=== PATIENT | male | born 1985 | race African-American/Black ===

== ENCOUNTER 2016-11-11 13:07 | Emergency (ER) | payer OTHER, MEDICAID ==
[~2016-11-11] VITALS: Ht 175.3 cm; Wt 70.0 kg
[2016-11-11 13:09] VITALS: BP 117/73; PULSE 76; RESP 20; TEMP 98.5; O2SAT 99
--- NOTE | 2016-11-11 13:13 | PD ---
Physical Exam Time Seen by Provider: 13:11 Narrative 31yo M c/o facial pain that started as left sided tooth pain yesterday. His whole face hurts today. Denies fever, vomiting. Patient seen in triage. VS reviewed. Awaiting bed placement. Data Data Last Documented VS Vital Signs Date Time Temp Pulse Resp B/P (MAP) Pulse Ox O2 Delivery O2 Flow Rate FiO2 11/11/16 13:09 98.5 76 20 117/73 (88) 99 Room Air MDM Supervised Visit with LEATHA: Rachel Esquivel Nov 11, 2016 13:13
--- NOTE | 2016-11-11 14:48 | PD ---
HPI Chief Complaint: ENT Complaint Time Seen by Provider: 14:33 Travel History International Travel<30 days: No Contact w/Intl Traveler<30days: No Traveled to known affect area: No History of Present Illness HPI 31-year-old Afro-Nepalese male with history of glaucoma and legal blindness with cataracts on the right, [facility] Patient states he developed a headache yesterday and the frontal sinus region which is continued since that time. He denies fever, chills, ear pain, postnasal drip, sore throat, or other symptoms. He denies specific eye pain at this time. He states that the school is not able to get ibuprofen or Tylenol without a prescription. He is currently followed by an lining stitcher for his glaucoma taking multiple meds as noted. He has no known drug allergies. [facility] Social History Alcohol Use: No Tobacco Use: No Allergies-Medications (Allergen,Severity, Reaction): Coded Allergies: No Known Allergies (Unverified , 11/11/16) Review of Systems Except as stated in HPI: all other systems reviewed are Neg General / Constitutional: No: Fever, Chills Eyes: Positive: Blindness (see history present illness), No: Visual changes HENT: Positive: Headaches, No: Vertigo, Lightheadedness, Sore Throat, Rhinitis , Rhinorrhea, Congestion, Nosebleed, Neck Stiffness, Neck Pain, Gingival Bleeding, Dental Difficulties, Ear Discharge, Earache Cardiovascular: No: Chest Pain or Discomfort Respiratory: No: Cough, Shortness of Breath Gastrointestinal: No: Abdominal Pain Genitourinary: No: Dysuria Musculoskeletal: No: Pain Skin: No Rash Neurologic: No: Weakness Psychiatric: No: Depression Endocrine: No: Polydipsia Hematologic/Lymphatic: No: Easy Bruising Physical Exam Narrative GENERAL: Patient appears in no acute distress. SKIN: Warm and dry. Normal color. Normal turgor. HEAD: Atraumatic. Normocephalic. EYES: Patient has obvious cataract of the right eye. Left eye has an irregular pupil. No injection or drainage. Patient legally blind. ENT: No nasal bleeding or discharge. Mucous membranes pink and moist. TMs are clear bilaterally. Pharynx is clear. Patient has mild sinus tenderness with palpation to the frontal sinuses. There is no sign of sinusitis or postnasal drip currently. NECK: Trachea midline. Supple and nontender. CARDIOVASCULAR: Regular rate and rhythm. RESPIRATORY: No accessory muscle use. Clear to auscultation. Breath sounds equal bilaterally. MUSCULOSKELETAL: Extremities without clubbing, cyanosis, or edema. No obvious deformities. NEUROLOGICAL: Awake and alert. No obvious cranial nerve deficits. Motor grossly within normal limits. Five out of 5 muscle strength in the arms and legs. Normal speech. PSYCHIATRIC: Appropriate mood and affect; insight and judgment normal. Data Data Last Documented VS Vital Signs Date Time Temp Pulse Resp B/P (MAP) Pulse Ox O2 Delivery O2 Flow Rate FiO2 11/11/16 13:09 98.5 76 20 117/73 (88) 99 Room Air MDM Medical Decision Making Medical Screen Exam Complete: Yes Emergency Medical Condition: Yes Differential Diagnosis Headache. Early sinusitis. Possible sequela of glaucoma. Narrative Course I do not feel this is a headache from his glaucoma. Patient's history and exam are more suggestive of a tension headache. Patient is given a prescription for ibuprofen 600 mg 3 times a day #30. Patient also given a prescription for acetaminophen 650 milligrams one 3 times a day when necessary headache. #30. Patient follow with his lining stitcher or return to emergency Department with worsening symptoms as needed. Diagnosis Primary Impression: Headache above the eye region Referrals: Body Component Engineer Primary Care Physician Patient Instructions: Acute Headache (ED), General Instructions Additional Instructions: I do not feel this is a headache from his glaucoma. Patient's history and exam are more suggestive of a tension headache. Patient is given a prescription for ibuprofen 600 mg 3 times a day #30. Patient also given a prescription for acetaminophen 650 milligrams one 3 times a day when necessary headache. #30. Patient follow with his lining stitcher or return to emergency Department with worsening symptoms as needed. Med/Other Pt SpecificInfo: Prescription(s) given Disposition: DISCHARGE HOME Condition: Stable Johnathan Roland Nov 11, 2016 14:48
[2016-11-11] MEDS ORDERED: MAPA325T PO (14:50)
[2016-11-11] MEDS ORDERED: IBUP-232 PO (14:50)
== END 2016-11-11 15:25 | disposition home or self-care (01) ==
LOC: NEPK 13:07
DX: R51 Headache (principal); H26.9 Unspecified cataract
CPT/HCPCS: 99283

== ENCOUNTER 2016-12-03 10:32 | Emergency (ER) | payer OTHER, MEDICAID ==
[~2016-12-03 10:32] MED LIST: IBUP-232 PO; MAPA325T PO
[2016-12-03 10:34] VITALS: BP 104/71; PULSE 79; RESP 13; TEMP 98.5; O2SAT 98
[2016-12-03] MEDS ORDERED: PRAM1AER8 TOPICAL (11:27)
[2016-12-03] MEDS ORDERED: ANUS25SU RECTAL (11:27)
--- NOTE | 2016-12-03 11:30 | PD ---
HPI Chief Complaint: Pain: Acute or Chronic Time Seen by Provider: 11:07 Travel History International Travel<30 days: No Contact w/Intl Traveler<30days: No Traveled to known affect area: No History of Present Illness HPI 31-year-old male presents to the emergency department for evaluation of rectal pain that started on Tuesday. He states he was taking a shower when he noticed some rectal pain around the anus. He states that then he tried to have a bowel movement, but strange and was unable to. He since has had a bowel movement without issue. However, he still has rectal pain. He denies any history of the same. No trauma. No fevers or chills. He has history of multiple glaucoma issues and cataract issues. He is legally blind. Patient uses eyedrops, takes no other medications. He denies any history of hemorrhoids. He has no other complaints at this time. [facility] Past Medical History Anemia: Yes Diminished Hearing: No ?: Not Past Surgical History Surgical History: No Previous Surgery Social History Alcohol Use: No Tobacco Use: No Substance Use: No Allergies-Medications (Allergen,Severity, Reaction): Coded Allergies: No Known Allergies (Unverified , 11/11/16) Reported Meds & Prescriptions Reported Meds & Active Scripts Active Review of Systems Except as stated in HPI: all other systems reviewed are Neg Physical Exam Narrative GENERAL: Well-nourished, well-developed male patient, afebrile. SKIN: Focused skin assessment warm/dry. HEAD: Normocephalic. Atraumatic. EYES: No scleral icterus. No injection or drainage. NECK: Supple, trachea midline. No JVD or lymphadenopathy. CARDIOVASCULAR: Regular rate and rhythm without murmurs, gallops, or rubs. RESPIRATORY: Breath sounds equal bilaterally. No accessory muscle use. Lungs sounds are clear to auscultation. GASTROINTESTINAL: Abdomen soft, non-tender, nondistended. MUSCULOSKELETAL: No cyanosis, or edema. BACK: No CVA tenderness. No rash. No point tenderness on palpation of the spine. RECTAL EXAM: Physical exam was done with HERMINIA Quinteros, at bedside. Patient has external hemorrhoid noted that is tender to palpation. No thrombosed hemorrhoids. No other notable findings. Data Data Last Documented VS Vital Signs Date Time Temp Pulse Resp B/P (MAP) Pulse Ox O2 Delivery O2 Flow Rate FiO2 9/22/17 10:34 98.5 79 13 104/71 (82) 98 MDM Medical Decision Making Medical Screen Exam Complete: Yes Emergency Medical Condition: Yes Medical Record Reviewed: Yes Differential Diagnosis External hemorrhoid versus thrombosed hemorrhoid versus rectal abscess Narrative Course 31-year-old male presents to the emergency department for evaluation of rectal pain that started on Tuesday. Physical exam shows external hemorrhoid. Patient was discharged with cortisone suppositories and cream for pain. He is instructed to the colorectal surgeon. He is to return here for any acute worsening of symptoms. He is instructed to have a high-fiber diet. Patient verbalizes agreement and understanding. The patient was discharged in stable condition with instructions, including return instructions and follow up instructions. Diagnosis Primary Impression: Hemorrhoid Qualified Codes: K64.9 - Unspecified hemorrhoids Referrals: Johnathan Pickett MD call for appointment Patient Instructions: General Instructions, Hemorrhoids (ED) Additional Instructions: Use suppositories as directed. Use Proctofoam instructed as needed. High-fiber diet. Follow-up with colorectal surgeon. Dr. Pickett is our colorectal surgeon wig sales consultant. Return to the emergency department for any acute worsening of symptoms. Med/Other Pt SpecificInfo: Prescription(s) given Scripts Pramoxine Topical (Rectal Foam) (Proctofoam Topical (Rectal Foam)) 1% Foam 1 APPLIC TOPICAL QID Y for ITCHING, #15 GM 0 Refills Prov: Nara Perera 12/03/16 Hydrocortisone Supp (Anusol-Hc Supp) 25 Mg Supp 25 MG RECTAL BID, #24 SUPP Prov: Nara Perera 12/03/16 Disposition: 01 DISCHARGE HOME Condition: Stable Nara Perera Dec 03, 2016 11:30
== END 2016-12-03 11:59 | disposition home or self-care (01) ==
LOC: NEPD 10:32
DX: K64.9 Unspecified hemorrhoids (principal); H54.8 Legal blindness, as defined in USA; H57.8 Other specified disorders of eye and adnexa; Z86.2 Personal history of diseases of the blood and blood-forming organs and certain disorders involving the immune mechanism
CPT/HCPCS: 99284

== ENCOUNTER 2017-01-17 08:48 | Emergency (ER) | payer OTHER, MEDICAID ==
[~2017-01-17] VITALS: Ht 190.5 cm; Wt 80.0 kg
[~2017-01-17 08:48] MED LIST changes: +ANUS25SU RECTAL; -IBUP-232 PO; -MAPA325T PO; +PRAM1AER8 TOPICAL
[2017-01-17 08:51] VITALS: BP 135/88; PULSE 106; RESP 18; TEMP 98.4; O2SAT 98
[2017-01-17 09:25] VITALS: BP 122/69; PULSE 98; RESP 18; TEMP 98.3; O2SAT 97
[2017-01-17] MEDS ORDERED: diphenhydrAMINE HCL 50 MG/ML VIAL IM ONE (09:30)
--- NOTE | 2017-01-17 09:58 | PD ---
HPI . itching Chief Complaint: Allergic/Adverse Reaction Time Seen by Provider: :17 Travel History International Travel<30 days: No Contact w/Intl Traveler<30days: No Traveled to known affect area: No History of Present Illness HPI Patient presents with a chief complaint of pruritic rash. Onset was yesterday. The rash is all over. The itching is severe. He has not taken anything for it. No modifying factors. No known etiology. He is on psychiatric medications. PFSH Past Medical History Anemia: Yes (sickle cell) Depression: Yes Diminished Hearing: No Glaucoma: Yes Schizophrenia: Yes Social History Alcohol Use: No Tobacco Use: No Substance Use: No Allergies-Medications (Allergen,Severity, Reaction): Coded Allergies: No Known Allergies (Unverified , 11/11/16) Reported Meds & Prescriptions Reported Meds & Active Scripts Active Proctofoam Topical (Rectal Foam) (Pramoxine Topical (Rectal Foam)) 1% Foam 1 Applic TOPICAL QID PRN Anusol-Hc Supp (Hydrocortisone Supp) 25 Mg Supp 25 Mg RECTAL BID Review of Systems Except as stated in HPI: all other systems reviewed are Neg General / Constitutional: No: Fever, Chills HENT: No: Sore Throat Respiratory: No: Shortness of Breath Gastrointestinal: No: Nausea, Vomiting Skin: Positive Rash, Positive Itching Physical Exam Narrative GENERAL: Awake and alert. Scratching continuously. SKIN: Excoriation. No urticaria. HEAD: Normocephalic/atraumatic. EYES: Pupils are equal. Extraocular movements are intact. ENT: No edema of the oropharynx. NECK: Supple. RESPIRATORY: Lungs are clear. Respirations are nonlabored. MUSCULOSKELETAL: Atraumatic. NEUROLOGICAL: Nonfocal. PSYCHIATRIC: Appropriate mood and affect. Data Data Last Documented VS Vital Signs Date Time Temp Pulse Resp B/P (MAP) Pulse Ox O2 Delivery O2 Flow Rate FiO2 01/17/17 09:25 98.3 98 18 122/69 (86) 97 Room Air Orders Orders Diphenhydramine Inj (Benadryl Inj) (01/17/17 09:30) [facility] Medical Decision Making Medical Screen Exam Complete: Yes Emergency Medical Condition: Yes Differential Diagnosis The differential diagnosis of the skin rash includes but is not limited to allergic urticaria, scabies, insect bites, contact dermatitis Narrative Course This patient presents with a pruritic rash. He was treated with Benadryl. The itching has subsided. Diagnosis Primary Impression: Pruritic rash Patient Instructions: Acute Rash (DC), General Instructions Additional Instructions: Benadryl, 2 every 4 hours as needed for itching. Disposition: 01 DISCHARGE HOME Condition: Stable Anupama Zavala MD Jan 17, 2017 09:58
== END 2017-01-17 10:10 | disposition home or self-care (01) ==
LOC: NEPD 08:48
DX: R21 Rash and other nonspecific skin eruption (principal)
CPT/HCPCS: 96372; 99284; J1200

== ENCOUNTER 2017-01-20 08:22 | Emergency (ER) | payer OTHER, MEDICAID ==
[~2017-01-20] VITALS: Ht 190.5 cm; Wt 72.0 kg
[2017-01-20 08:23] VITALS: BP 131/86; PULSE 82; RESP 18; TEMP 98.9; O2SAT 98
[2017-01-20] MEDS ORDERED: SODIUM CHLOR 0.9% 1000 ML INJ 1,000 ML IV SCH (08:44)
[2017-01-20 08:45] VITALS: RESP 20; O2SAT 100
[2017-01-20] MEDS ORDERED: FAMOTIDINE 20 MG/2 ML VIAL IV PUSH ONE (08:45)
[2017-01-20] MEDS ORDERED: ONDANSETRON HCL 4 MG/2 ML VIAL IVP ONE (08:45)
[2017-01-20] MEDS ORDERED: DICYCLOMINE HCL 10 MG CAP PO ONE (08:45)
[2017-01-20] MEDS ORDERED: SODIUM CHLORIDE 0.9% FLUSH 10 ML FLUSH IV FLUSH PRN (08:45)
[2017-01-20] MEDS ORDERED: MORPHINE SULFATE 4 MG/ML INJ IV PUSH ONE ×2 (08:45→10:15)
--- NOTE | 2017-01-20 08:54 | PD ---
HPI Chief Complaint: Abdominal Pain Time Seen by Provider: 08:34 Travel History International Travel<30 days: No Contact w/Intl Traveler<30days: No Traveled to known affect area: No History of Present Illness HPI The patient is a 31-year-old Mary male who presents to the emergency department for nausea, vomiting, diarrhea, and abdominal pain. The patient states his symptoms started 4 days ago, initially thought he was having allergic reaction to Trileptal. The patient's Trileptal was discontinued. However, the patient states her last several days he's had some increasing nausea, vomiting, epigastric discomfort, and diarrhea. He describes the diarrhea as loose, watery, without any visible blood. He also complains of a mild migraine headache and body aches. He denies any fever, chills, or sweats. [facility] He denies any associated dysuria , frequency, or urgency. He denies any skin rash or itching. Symptoms are moderate, initially thought to be exacerbated by Trileptal, however, there are no current alleviating factors. He has been trying to drink fluids and eat saltines with minimal alleviation of his symptoms. PFSH Past Medical History Anemia: Yes (sickle cell) Bipolar Disorder: Yes Depression: Yes Diabetes: No Diminished Hearing: No Glaucoma: Yes Schizophrenia: Yes Tetanus Vaccination: > 5 Years Influenza Vaccination: Yes Past Surgical History Eye Surgery: Yes (L EYE) Social History Alcohol Use: No Tobacco Use: No Substance Use: No Allergies-Medications (Allergen,Severity, Reaction): Coded Allergies: No Known Allergies (Unverified , 11/11/16) Reported Meds & Prescriptions Reported Meds & Active Scripts Active Proctofoam Topical (Rectal Foam) (Pramoxine Topical (Rectal Foam)) 1% Foam 1 Applic TOPICAL QID PRN Anusol-Hc Supp (Hydrocortisone Supp) 25 Mg Supp 25 Mg RECTAL BID Reported Ibuprofen 800 Mg Tab 800 Mg PO Q8H PRN Ibuprofen 600 Mg Tab 600 Mg PO TID Zoloft (Sertraline HCl) 50 Mg Tab 50 Mg PO DAILY Latuda (Lurasidone) 20 Mg Tab 20 Mg PO DAILY Review of Systems Except as stated in HPI: all other systems reviewed are Neg General / Constitutional: No: Fever HENT: Positive: Headaches Cardiovascular: No: Chest Pain or Discomfort Respiratory: No: Shortness of Breath Gastrointestinal: Positive: Nausea, Vomiting, Diarrhea, Abdominal Pain Genitourinary: No: Dysuria Musculoskeletal: Positive: Myalgias Skin: No Rash, No Itching Physical Exam Narrative GENERAL: Awake, alert, pleasant 31-year-old male who appears his stated age and is in no acute respiratory distress. SKIN: Focused skin assessment warm/dry. Multiple tattoos noted. HEAD: Atraumatic. Normocephalic. EYES: Patient is able to see light and shapes, but not fingers at a distance of 2 feet. ENT: No nasal bleeding or discharge. Mucous membranes pink and moist. NECK: Trachea midline. No JVD. CARDIOVASCULAR: Regular rate and rhythm. No murmur appreciated. RESPIRATORY: No accessory muscle use. Clear to auscultation. Breath sounds equal bilaterally. GASTROINTESTINAL: Abdomen soft, minimal epigastric tenderness. No rebound tenderness, guarding, rigidity. MUSCULOSKELETAL: No obvious deformities. No clubbing. No cyanosis. No edema. NEUROLOGICAL: Awake and alert. No obvious cranial nerve deficits. Motor grossly within normal limits. Normal speech. PSYCHIATRIC: Appropriate mood and affect; insight and judgment normal. Data Data Last Documented VS Vital Signs Date Time Temp Pulse Resp B/P (MAP) Pulse Ox O2 Delivery O2 Flow Rate FiO2 01/20/17 10:13 68 16 126/66 (86) 98 Room Air 01/20/17 08:23 98.9 Orders Orders Complete Blood Count With Diff (01/20/17 08:44) Comprehensive Metabolic Panel (01/20/17 08:44) Lipase (01/20/17 08:44) Lactic Acid (01/20/17 08:44) Iv Access Insert/Monitor (01/20/17 08:44) Ecg Monitoring (01/20/17 08:44) Oximetry (01/20/17 08:44) Morphine Inj (Morphine Inj) (01/20/17 08:45) Ondansetron Inj (Zofran Inj) (01/20/17 08:45) Sodium Chlor 0.9% 1000 Ml Inj (Ns 1000 M (01/20/17 08:44) Sodium Chloride 0.9% Flush (Ns Flush) (01/20/17 08:45) Famotidine Inj (Pepcid Inj) (01/20/17 08:45) Dicyclomine (Bentyl) (01/20/17 08:45) Morphine Inj (Morphine Inj) (01/20/17 10:15) Labs Laboratory Tests Test 01/20/17 08:50 01/20/17 08:59 White Blood Count 5.0 TH/MM3 Red Blood Count 5.83 MIL/MM3 Hemoglobin 12.0 GM/DL Hematocrit 38.8 % Mean Corpuscular Volume 66.5 FL Mean Corpuscular Hemoglobin 20.5 PG Mean Corpuscular Hemoglobin Concent 30.8 % Red Cell Distribution Width 20.2 % Platelet Count 389 TH/MM3 Mean Platelet Volume 7.1 FL Neutrophils (%) (Auto) 60.8 % Lymphocytes (%) (Auto) 26.8 % Monocytes (%) (Auto) 11.0 % Eosinophils (%) (Auto) 1.0 % Basophils (%) (Auto) 0.4 % Neutrophils # (Auto) 3.1 TH/MM3 Lymphocytes # (Auto) 1.4 TH/MM3 Monocytes # (Auto) 0.6 TH/MM3 Eosinophils # (Auto) 0.0 TH/MM3 Basophils # (Auto) 0.0 TH/MM3 CBC Comment DIFF FINAL Differential Comment Blood Urea Nitrogen 10 MG/DL Creatinine 1.18 MG/DL Random Glucose 97 MG/DL Total Protein 9.2 GM/DL Albumin 4.2 GM/DL Calcium Level 9.4 MG/DL Alkaline Phosphatase 60 U/L Aspartate Amino Transf (AST/SGOT) 29 U/L Alanine Aminotransferase (ALT/SGPT) 25 U/L Total Bilirubin 0.2 MG/DL Sodium Level 136 MEQ/L Potassium Level 4.0 MEQ/L Chloride Level 103 MEQ/L Carbon Dioxide Level 26.7 MEQ/L Anion Gap 6 MEQ/L Estimat Glomerular Filtration Rate 87 ML/MIN Lipase 117 U/L Lactic Acid Level 0.8 mmol/L [facility] Medical Decision Making Medical Screen Exam Complete: Yes Emergency Medical Condition: Yes Medical Record Reviewed: Yes Interpretation(s) Laboratory Tests Test 01/20/17 08:50 01/20/17 08:59 White Blood Count 5.0 TH/MM3 Red Blood Count 5.83 MIL/MM3 Hemoglobin 12.0 GM/DL Hematocrit 38.8 % Mean Corpuscular Volume 66.5 FL Mean Corpuscular Hemoglobin 20.5 PG Mean Corpuscular Hemoglobin Concent 30.8 % Red Cell Distribution Width 20.2 % Platelet Count 389 TH/MM3 Mean Platelet Volume 7.1 FL Neutrophils (%) (Auto) 60.8 % Lymphocytes (%) (Auto) 26.8 % Monocytes (%) (Auto) 11.0 % Eosinophils (%) (Auto) 1.0 % Basophils (%) (Auto) 0.4 % Neutrophils # (Auto) 3.1 TH/MM3 Lymphocytes # (Auto) 1.4 TH/MM3 Monocytes # (Auto) 0.6 TH/MM3 Eosinophils # (Auto) 0.0 TH/MM3 Basophils # (Auto) 0.0 TH/MM3 CBC Comment DIFF FINAL Differential Comment Blood Urea Nitrogen 10 MG/DL Creatinine 1.18 MG/DL Random Glucose 97 MG/DL Total Protein 9.2 GM/DL Albumin 4.2 GM/DL Calcium Level 9.4 MG/DL Alkaline Phosphatase 60 U/L Aspartate Amino Transf (AST/SGOT) 29 U/L Alanine Aminotransferase (ALT/SGPT) 25 U/L Total Bilirubin 0.2 MG/DL Sodium Level 136 MEQ/L Potassium Level 4.0 MEQ/L Chloride Level 103 MEQ/L Carbon Dioxide Level 26.7 MEQ/L Anion Gap 6 MEQ/L Estimat Glomerular Filtration Rate 87 ML/MIN Lipase 117 U/L Lactic Acid Level 0.8 mmol/L Differential Diagnosis Differential diagnosis includes gastritis, gastroenteritis, viral syndrome, medication side effect, allergic reaction, pancreatitis, atypical symptomatic cholelithiasis, dehydration, electrolyte abnormality, influenza. Narrative Course IV was established, labs are drawn and sent, and the patient was placed on cardiac telemetry monitoring and continuous pulse oximetry monitoring. The patient was administered morphine, Zofran, Bentyl, Pepcid, and IV fluids. Lipase level was sent to lab. The patient's labs are noted, white count is normal. Lactic acid is unremarkable. LFTs and lipase are normal. The patient is reevaluated 11:15 AM, his symptoms had significantly improved. Patient be discharged home on Zofran and Bentyl. He is advised to have a clear liquid diet and advance as tolerated. Diagnosis Primary Impression: Gastroenteritis Patient Instructions: General Instructions Additional Instructions: Medications as directed. Follow-up with your primary physician. Clear liquid diet and advance as tolerated. Med/Other Pt SpecificInfo: Prescription(s) given Scripts Dicyclomine (Bentyl) 10 Mg Cap 10 MG PO QID for Bowel Management, #12 CAP 0 Refills Prov: Paul Cook MD 01/20/17 Ondansetron Odt (Zofran Odt) 4 Mg Tab 4 MG SL Q6HR Y for Nausea/Vomiting, #7 TAB 0 Refills Prov: Paul Cook MD 01/20/17 Disposition: 01 DISCHARGE HOME Condition: Stable Paul Cook MD Jan 20, 2017 08:54
[2017-01-20 09:11] VITALS: BP 131/87; PULSE 66; RESP 15; O2SAT 100
[2017-01-20 09:21] LABS: AUTOMATED NEUTROPHIL # 3.1 TH/MM3 (1.8-7.7); BASOPHIL % 0.4 % (0.0-2.0); HEMATOCRIT 38.8 % (39.0-51.0); HEMO FLAGS DIFF FINAL; LYMPH % 26.8 % (9.0-44.0); LYMPHOCYTE # 1.4 TH/MM3 (1.0-4.8); MEAN CELL VOLUME 66.5 FL (80.0-100.0); MEAN CORPUSCULAR HEMOGLOBIN 20.5 PG (27.0-34.0); MEAN CORPUSCULAR HGB CONC 30.8 % (32.0-36.0); NEUT % 60.8 % (16.0-70.0); PLATELET COUNT 389 TH/MM3 (150-450); RED BLOOD COUNT 5.83 MIL/MM3 (4.50-5.90); RED CELL DISTRIBUTION WIDTH 20.2 % (11.6-17.2)
[2017-01-20 09:37] LABS: ALT (GPT) 25 U/L (12-78)
[2017-01-20 09:40] LABS: ALKALINE PHOSPHATASE 60 U/L (45-117); TOTAL BILIRUBIN ADULT 0.2 MG/DL (0.2-1.0)
[2017-01-20 09:46] LABS: ANION GAP 6 MEQ/L (5-15); AST (GOT) 29 U/L (15-37); BICARBONATE 26.7 MEQ/L (21.0-32.0); BLOOD UREA NITROGEN 10 MG/DL (7-18); CHLORIDE 103 MEQ/L (98-107); GLOMERULAR FILTRATION RATE 87 ML/MIN (>89); SODIUM (NA) 136 MEQ/L (136-145)
[2017-01-20 10:13] VITALS: BP 126/66; PULSE 68; RESP 16; O2SAT 98
[2017-01-20] MEDS ORDERED: IBUP-232 PO (10:21)
[2017-01-20] MEDS ORDERED: ZOLO50TA PO (10:21)
[2017-01-20] MEDS ORDERED: LURA20TA PO (10:21)
[2017-01-20] MEDS ORDERED: IBUP1TAB7 PO (10:21)
[2017-01-20] MEDS ORDERED: ZOFR4TAB3 SL (11:18)
[2017-01-20] MEDS ORDERED: DICY10 PO (11:18)
[2017-01-20 11:50] VITALS: RESP 15
== END 2017-01-20 19:25 | disposition home or self-care (01) ==
LOC: NEPC 08:22
DX: K52.9 Noninfective gastroenteritis and colitis, unspecified (principal); D57.1 Sickle-cell disease without crisis; H40.9 Unspecified glaucoma; F31.9 Bipolar disorder, unspecified; F20.9 Schizophrenia, unspecified
CPT/HCPCS: 80053; 83605; 83690; 85025; 96361; 96374; 96375; 96376; 99284; J2270; J2405; J7030